=== PATIENT | female | born 1955 | race Asian ===

== ENCOUNTER 2025-07-30 13:41 | Emergency (ER) | payer OTHER ==
[~2025-07-30] VITALS: Ht 157.5 cm; Wt 54.5 kg
[2025-07-30 13:50] VITALS: TEMP 98.2
[2025-07-30] MEDS ORDERED: LOSA-382 PO (13:53)
[2025-07-30] MEDS ORDERED: LOVA20TA73 PO (13:53)
[2025-07-30] MEDS ORDERED: ALEN70TA65 PO (13:53)
[2025-07-30] MEDS: KETOROLAC TROMETHAMINE 30 MG/ML VIAL IM ONE (14:41)
[2025-07-30] MEDS: ACETAMINOPHEN 325 MG TABLET PO ONE (14:41)
[2025-07-30 15:31] VITALS: BP 134/71; PULSE 62; RESP 18; O2SAT 97
== END 2025-07-30 15:52 | disposition home or self-care (01) ==
LOC: EMS 13:41
DX: M25.561 Pain in right knee (principal); M25.562 Pain in left knee; I10 Essential (primary) hypertension; M81.0 Age-related osteoporosis without current pathological fracture; Z79.899 Other long term (current) drug therapy; W01.0XXA Fall on same level from slipping, tripping and stumbling without subsequent striking against object, initial encounter
CPT/HCPCS: 99283; 73562 ×2; 96372; J1885